=== PATIENT | male | born 1965 | race Caucasian/White ===

== ENCOUNTER 2018-05-14 03:39 | Emergency (ER) | payer OTHER ==
--- NOTE | 2018-05-14 04:03 | C.PDOC ---
History Of Present Illness 53 year old male on 05/08/18 had URI symptoms, he went to [facility] where he was given nasal spray, cough syrup, and had flu test that was negative. Patient reports his symptoms have been resolving with the medications he was given but still has lingering cough which has also been resolving. He presents tonight because he finished his cough medication and reports he has had a persistent dry cough which has not allowed him to sleep. Otherwise patient has no other complaints. Chief Complaint (Nursing): Cough, Cold, Congestion History Per: Patient History/Exam Limitations: no limitations Onset/Duration Of Symptoms: Hrs Current Symptoms Are (Timing): Still Present Location Of Pain: None Associated Symptoms: Cough Recent travel outside of the [place]: No Past Medical History Reviewed: Historical Data, Nursing Documentation, Vital Signs Vital Signs: Last Vital Signs Temp 97.6 F 05/14/18 03:50 Pulse 92 H 05/14/18 03:50 Resp 18 05/14/18 03:50 BP 157/95 H 05/14/18 03:50 Pulse Ox 97 05/14/18 03:50 Family History: States: Unknown Family Hx - Social History Hx Alcohol Use: No Hx Substance Use: No - Immunization History Hx Tetanus Toxoid Vaccination: No Hx Influenza Vaccination: No Hx Pneumococcal Vaccination: No Review Of Systems Constitutional: Negative for: Fever, Chills Eyes: Negative for: Pain, Redness ENT: Negative for: Mouth Swelling Cardiovascular: Negative for: Chest Pain Respiratory: Positive for: Cough (Dry). Negative for: Shortness of Breath Gastrointestinal: Negative for: Nausea, Vomiting, Diarrhea Genitourinary: Negative for: Dysuria, Hematuria Musculoskeletal: Negative for: Back Pain Skin: Negative for: Rash Neurological: Negative for: Weakness, Numbness, Dizziness Physical Exam - Physical Exam Appears: Well, Non-toxic, No Acute Distress, Other (Speaking in complete sentences) Skin: Normal Color, Warm Head: Atraumatic, Normacephalic Eye(s): bilateral: Normal Inspection, PERRL, EOMI Ear(s): Bilateral: Normal Nose: Other (Injected mucosa. No enlarged turbinates.) Oral Mucosa: Moist Throat: Normal (No swelling or injection), No Exudate Neck: Normal ROM, Supple Chest: Symmetrical Respiratory: No Accessory Muscle Use, Other (Normal inspiratory effort. Persistent dry cough.) Gastrointestinal/Abdominal: Soft, No Distention Extremity: Normal ROM (x4) Neurological/Psych: Oriented x3, Normal Speech, Normal Cranial Nerves (Grossly intact) Gait: Steady ED Course And Treatment O2 Sat by Pulse Oximetry: 97 (Room air) Pulse Ox Interpretation: Normal Medical Decision Making Medical Decision Making: Patient likely with bronchitis, sent home with albuterol inhaler and cough syrup, instructed to follow up with primary. Disposition Counseled Patient/Family Regarding: Diagnosis, Need For Followup, Rx Given - Disposition Referrals: [facility] [Outside] Disposition: HOME/ ROUTINE Disposition Time: 04:00 Condition: STABLE Prescriptions: Albuterol HFA [Ventolin HFA 90 mcg/actuation (8 g)] 2 puff IH [id number] #1 inhaler Codeine Phosphate/Guaifenesin [Guaifen-Codeine 100-10 mg/5 ml] 10 ml PO HS #100 ml Instructions: Acute Bronchitis, Adult (DC) Forms: [facility] (Wolof), General Discharge Instructions - Clinical Impression Clinical Impression: Bronchitis - PA / PROTECTION AGENT / Resident Statement MD/DO has reviewed & agrees with the documentation as recorded. - Scribe Statement The provider has reviewed the documentation as recorded by the Scribe Gerson Cummings All medical record entries made by the Scribe were at my direction and personally dictated by me. I have reviewed the chart and agree that the record accurately reflects my personal performance of the history, physical exam, medical decision making, and the department course for this patient. I have also personally directed, reviewed, and agree with the discharge instructions and disposition.
[2018-05-14 04:12] VITALS: TEMP 97.6
[2018-05-14 04:24] VITALS: BP 145/92; PULSE 84; RESP 14; O2SAT 97
== END 2018-05-14 04:24 | disposition home or self-care (01) ==
LOC: C.ER 03:39
DX: J40 Bronchitis, not specified as acute or chronic (principal)